=== PATIENT | female | born 1960 | race Caucasian/White ===

== ENCOUNTER 2017-05-14 07:16 | Emergency (ER) | payer BC ==
--- NOTE | 2017-05-14 07:41 | UC ---
Respiratory Complaint HPI - HPI Summary HPI Summary: 57 year old female presents with worsening cough and headache for 1 week. Cough is constant . No wheeze. No cp/sob/muniz. - History of Current Complaint Chief Complaint: UCRespiratory Stated Complaint: COUGH Hx Obtained From: Patient Hx Last Menstrual Period: n/a Onset/Duration: Gradual Onset Timing: Constant Severity Initially: Moderate Severity Currently: Moderate Character: Cough: Productive Alleviating Factors: Bronchodilator Associated Signs And Symptoms: Positive: Negative - Risk Factors Pulmonary Embolism Risk Factors: Negative Cardiac Risk Factors: Negative Pseudomonas Risk Factors: Negative Tuberculosis Risk Factors: Negative - Allergies/Home Medications Allergies/Adverse Reactions: Allergies Allergy/AdvReac Type Severity Reaction Status Date / Time Sulfa Antibiotics Allergy Hives Verified 05/14/17 07:28 Home Medications: Home Medications Cholecalciferol [Vitamin D] 1,000 unit PO DAILY 05/14/17 [History Confirmed 05/22] Multivitamins/Minerals TAB* [Thera M Plus TAB*] 1 tab PO DAILY 05/14/17 [ History Confirmed 05/14/17] Phenylephrine-Diphenhydramine- [Cold & Cough Daytim... 2.5-5 &2.5-6.25 mg/5Ml] 1 mis PO Q12H PRN 05/14/17 [History Confirmed 05/14/17] [id number] W/ APAP [Delsym Cough + Cold D... 7-70-619-325 mg/10Ml] 1 liq PO QID PRN 05/14/17 [History Confirmed 05/14/17] PMH/Surg Hx/FS Hx/Imm Hx Previously Healthy: Yes - Surgical History Surgical History: Yes Surgery Procedure, Year, and Place: ovary removal, tonsillectomy, breast implants - Family History Known Family History: Positive: Cardiac Disease - father Negative: Hypertension, Diabetes - Social History Occupation: Employed Full-time Lives: With Family Alcohol Use: Occasionally Substance Use Type: None Smoking Status (MU): Light Every Day Tobacco Smoker Type: Cigarettes Amount Used/How Often: 2-3 cigarettes / day Review of Systems Constitutional: Fatigue Respiratory: Cough Neurological: Headache Is Patient Immunocompromised?: No All Other Systems Reviewed And Are Negative: Yes Physical Exam Triage Information Reviewed: Yes Appearance: Well-Appearing, No Pain Distress, Well-Nourished Vital Signs: Initial Vital Signs Temp 98.9 F 05/14/17 07:22 Pulse 81 05/14/17 07:22 Resp 18 05/14/17 07:22 BP 161/99 05/14/17 07:22 Pulse Ox 99 05/14/17 07:22 Vital Signs Reviewed: Yes Eye Exam: Normal ENT Exam: Normal Dental Exam: Normal Neck exam: Normal Neck: Positive: 1 Respiratory Exam: Normal Cardiovascular Exam: Normal Musculoskeletal Exam: Normal Neurological Exam: Normal Psychological Exam: Normal Skin Exam: Normal UC Diagnostic Evaluation - Laboratory O2 Sat by Pulse Oximetry: 99 Respiratory Course/Dx - Course Course Of Treatment: Viral at this time. Supportive care and if Sx worsen then can start augmentin - Differential Dx/Diagnosis Differential Diagnosis/HQI/PQRI: Bronchitis, Laryngitis, Lower Resp Infection, Sinusitis Provider Diagnoses: Upper Resp Infection Discharge - Discharge Plan Condition: Good Disposition: HOME Prescriptions: Amoxicillin/Clavulanate TAB* [Augmentin TAB 875*] 875 mg PO BID #20 tab Benzonatate [TESSALON 200 MG CAP] 200 mg PO 20 PRN #20 cap PRN Reason: Cough Patient Education Materials: Upper Respiratory Infection (ED) Referrals: No Primary Care Phys,NOPCP [Primary Care Provider] - 3 Days Additional Instructions: As we discussed please start the cough meds as needed and Mucinex for the phlegm. If your symptoms WORSEN over the next 48 hours then please at that time start the antibiotic that was sent to your pharmacy.
[2017-05-14 07:42] VITALS: BP 161/99
== END 2017-05-14 08:01 | disposition home or self-care (01) ==
LOC: UCCORT 07:16
DX: J06.9 Acute upper respiratory infection, unspecified (principal); Z88.2 Allergy status to sulfonamides; F17.210 Nicotine dependence, cigarettes, uncomplicated
CPT/HCPCS: 99212; G0463